=== PATIENT | female | born 1965 | race Caucasian/White ===

== ENCOUNTER 2016-12-18 09:30 | Emergency (ER) | payer OTHER ==
[~2016-12-18] VITALS: Ht 162.6 cm; Wt 68.7 kg
[2016-12-18] MEDS ORDERED: KEPPRA 500 MG500 MG PO ×2 (09:41→09:42)
[2016-12-18] MEDS ORDERED: CLARITIN 10MG T10 MG PO (09:42)
[2016-12-18] MEDS ORDERED: TRILEPTAL300 MG PO (09:42)
[2016-12-18] MEDS ORDERED: DICLOFENAC 50MG50 MG PO (09:43)
[2016-12-18] MEDS ORDERED: SPIRIVA HA1 PUFF/INH IH (09:43)
[2016-12-18] MEDS ORDERED: ADVAIR 250/5028 PUFF IN (09:43)
[2016-12-18] MEDS ORDERED: PREVACID 30MG C30 M1 PO (09:43)
--- NOTE | 2016-12-18 09:43 | Emergency Room Report ---
History of Present Illness Time Seen by MD Guerrero32 Presenting Problem in Triage Pt arrived:Walked Presenting Problem:PT C/O SOA, COUGH, AND HEAVINESS IN CHEST X9 DAYS. PT REPORTS HX OF ASTHMA. PT STATES THAT SHE HAS SEEN PCP AND HAS UNDERWENT TESTING, BUT STILL DOESNT FEEL WELL. 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 N Clinical Suspician of Infection? N Mental Status: 1 - Regular (Normal Baseline) Sepsis Risk:Low Sepsis Risk Have you (or family members/close friends) recently traveled outside the [place]? N If Yes, where/when: Have you had exposure to infectious disease within the past month? N TB? Other? Specify: Comment The patient states she has not felt well for over a week. Symptoms started on . She has a constant heaviness in her chest and difficulty breathing. She has a cough. Cough was initially off and on, but is worse today. She has had a headache. She was on 5 days of prednisone, prescribed by a telephone physician. While on that, her headache improved, but is now back. However, her chest symptoms did not improve. She saw her primary care physician on Friday 2 days ago and had a chest x-ray done at [facility], blood work, and an electrocardiogram. She does not yet know the results. She says that she has had chest discomfort that has kept her from sleep since 4 AM and therefore came to the emergency department. She has a history of asthma. She says her lungs were clear when seen by the physician on Friday. She does have a history of gastroesophageal reflux disease and is on Prevacid twice a day. She does not have any known heart disease, but states it runs in her family. She also states that she has a focal area of tenderness in her LEFT calf that began yesterday. His travel, hospitalizations, or surgeries. ALLERGIES Coded Allergies: phenytoin (From DILANTIN) (Mild, 12/18/16) Home Medications Reported Medications Levetiracetam (Keppra 500 Mg Tablet) 500 MG PO DAILY Levetiracetam (Keppra 500 Mg Tablet) 1,000 MG PO QHS Oxcarbazepine (Trileptal) 300 MG PO BID Loratadine (Claritin 10MG) 10 MG PO DAILY FLUTICASONE/SALMETEROL (Advair 250-50 Diskus) 1 PUFF IN BID Tiotropium [place] (Spiriva) 1 PUFF IH DAILY Lansoprazole (Prevacid) 30 MG PO BID DICLOFENAC SODIUM (Diclofenac 50MG) 50 MG PO DAILY History Medical History General CAD? No Angina: No SC: No Hypertension? No Hyperlipidemia? No CHF? No DVT? No PE? No COPD? No Asthma? Yes Anemia? No GERD? No Gastric ulcers? No GI Bleed? No Hernia? No Thyroid Problems? No Hypothyroidism? No CVA? No Seizures? Yes Diabetes? No Renal Insuffiency? No End Stage Renal Disease? No UTI? No Stones? No BPH? No GB Disease: No Nephritic Syndrome? No Asplenia? No Hepatitis? No Sickle Cell Disease? No Arthritis? No Migraines? No Cataracts? No Glaucoma? No MRSA? No HIV? No TB? No Anxiety? No Depression? No Cancer? No More? 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/A Social History Smoking Hx Smoker: Never Smoker Tobacco: No Alcohol Alcohol: No Review of Systems All Other Systems Reviewed and Negative Constitutional denies fever Respiratory cough, shortness of breath Cardiovascular chest pain Gastrointestinal denies abdominal pain, denies vomiting Musculoskeletal muscle pain (left calf) Physical Exam Vital Signs Vital Signs Date Time Temp Pulse Resp B/P Pulse O2 O2 Flow FiO2 Ox Delivery Rate 12/18 1257 97.9 78 20 122/85 100 12/18 1112 78 20 122/85 100 12/18 1035 97.9 82 20 125/83 100 12/18 0935 98.7 81 20 151/88 97 General Appearance normal appearance, WD/WN Eye Exam - bilateral eye normal exam, bilateral eye PERRL, bilateral eye EOMI Ear, Nose, Throat hearing grossly normal, normal ENT inspection Neck normal inspection, non-tender, supple, full range of motion Respiratory Status Yes: trachea midline, chest symmetrical, non tender chest. No: respiratory distress. Lung Sounds bilateral: normal breath sounds, lungs clear. 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 No Results/Orders Laboratory Tests 12/18/16944: Lactic Acid 0.6 12/18/16944: Sodium 126 L, Potassium 4.0, Chloride 93 L, Carbon Dioxide 26, BUN 9, Creatinine 0.5 L, Estimated Creat Clear 144, Estimated GFR (MDRD) 130, Glucose 102, Calcium 8.6, Total Bilirubin 0.4, AST 17, ALT 28, Alkaline Phosphatase 107, Total Protein 7.1, Albumin 3.3 L, Globulin 3.8 H, Albumin/Globulin Ratio 0.9 L, D-Dimer 425 *H, WBC 6.4, RBC 4.55, Hgb 13.9, Hct 40.7, MCV 89.4, RDW 11.9, Plt Count 289, MPV 8.2, Gran % 72.0, Gran # 4.6, Lymphocytes % 16.2, Monocytes % 7.9, Eosinophils % 3.2, Basophils % 0.8, Lymphocytes # 1.0, Monocytes # 0.5, Eosinophils # 0.2, Basophils # 0.1, PUBS MCHC 34.1, MCH 30.5 Current Medication Orders Sig/Nadeem Start time Last Medication Dose Route Stop Time Status Admin Sodium Chloride 10 ML PRN PRN 12/18 944 DCD IV 12/19 944 Orders Procedure Date/time Status DIET-NOTHING BY MOUTH 12/18 L Active VENOUS LOWER EXT LT 12/[address] CHEST W/PE PROTOCOL REQ 12/18 1052 Complete D-DIMER 12/18 1005 Complete ELECTROCARDIOGRAM REQUEST 12/18 945 Active IV SALINE LOCK 12/18 945 Active CULTURE, BLOOD 12/18 945 Active LACTIC ACID 12/18 945 Complete CBC WITH AUTO DIFF 12/18 945 Complete CHEM 12 PROFILE 12/18 945 Complete 12 LEAD EKG-NELLIE (INITIAL) 12/18 UNK Active CM/EKG CM/EKG Comments EKG interpreted by Bruce Rodgers MD: Rhythm: sinus Rate: 73 [place]: normal Ectopy: none Conduction: normal ST Segment Changes: none T Wave Changes: none Q Waves: none No evidence of acute ischemia or injury XRAY/CT/US XRAY/CT/US XRAY chest Comment X-ray interpreted by radiologist: LEFT basilar airspace disease CT chest Comment CT scan interpreted by radiologist: Round density in the LEFT lower lobe. "Round pneumonia" versus mass. No PE. No adenopathy. Ultrasound lower extremity Comment As per [facility] procedure, ultrasound report received from natural gas plant technician: Negative Departure Departure Disposition DC Home or Self Care(routine) Clinical Impression Primary Impression: Chest pain, atypical Secondary Impressions: Mass of lung parenchyma Condition STABLE Patient Instructions DI for Pneumonia -- Adult Additional Instructions Off work until Friday12/23/16. You have an abnormality of your LEFT lower lobe of your lung. This may be a pneumonia. It is important that you finish your course of antibiotics and then follow up with your primary care physician for repeat x-ray and further evaluation to assure that it resolves. If it does not resolve he will need further evaluation, possibly a biopsy. Additional instructions for CHEST PAIN: See your physician as soon as possible for further evaluation. Return immediately if worsening chest pain, vomiting, shortness of breath, fever, coughing of blood. Prescriptions Current Visit Scripts Levofloxacin (Levaquin 750MG Tab) 750 MG PO DAILY #5 TAB ED Critical Care Critical Care No at [id number]
--- NOTE | 2016-12-18 09:43 | Emergency Room Report ---
History of Present Illness Time Seen by MD [email or web address] Presenting Problem in Triage Pt arrived:Walked Presenting Problem:PT C/O SOA, COUGH, AND HEAVINESS IN CHEST X9 DAYS. PT REPORTS HX OF ASTHMA. PT STATES THAT SHE HAS SEEN PCP AND HAS UNDERWENT TESTING, BUT STILL DOESNT FEEL WELL. 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 N Clinical Suspician of Infection? N Mental Status: 1 - Regular (Normal Baseline) Sepsis Risk:Low Sepsis Risk Have you (or family members/close friends) recently traveled outside the [place]? N If Yes, where/when: Have you had exposure to infectious disease within the past month? N TB? Other? Specify: Comment The patient states she has not felt well for over a week. Symptoms started on . She has a constant heaviness in her chest and difficulty breathing. She has a cough. Cough was initially off and on, but is worse today. She has had a headache. She was on 5 days of prednisone, prescribed by a telephone physician. While on that, her headache improved, but is now back. However, her chest symptoms did not improve. She saw her primary care physician on Friday 2 days ago and had a chest x-ray done at [facility], blood work, and an electrocardiogram. She does not yet know the results. She says that she has had chest discomfort that has kept her from sleep since 4 AM and therefore came to the emergency department. She has a history of asthma. She says her lungs were clear when seen by the physician on Friday. She does have a history of gastroesophageal reflux disease and is on Prevacid twice a day. She does not have any known heart disease, but states it runs in her family. She also states that she has a focal area of tenderness in her LEFT calf that began yesterday. His travel, hospitalizations, or surgeries. ALLERGIES Coded Allergies: phenytoin (From DILANTIN) (Mild, 12/18/16) Home Medications Reported Medications Levetiracetam (Keppra 500 Mg Tablet) 500 MG PO DAILY Levetiracetam (Keppra 500 Mg Tablet) 1,000 MG PO QHS Oxcarbazepine (Trileptal) 300 MG PO BID Loratadine (Claritin 10MG) 10 MG PO DAILY FLUTICASONE/SALMETEROL (Advair 250-50 Diskus) 1 PUFF IN BID Tiotropium [place] (Spiriva) 1 PUFF IH DAILY Lansoprazole (Prevacid) 30 MG PO BID DICLOFENAC SODIUM (Diclofenac 50MG) 50 MG PO DAILY History Medical History General CAD? No Angina: No DC: No Hypertension? No Hyperlipidemia? No CHF? No DVT? No PE? No COPD? No Asthma? Yes Anemia? No GERD? No Gastric ulcers? No GI Bleed? No Hernia? No Thyroid Problems? No Hypothyroidism? No CVA? No Seizures? Yes Diabetes? No Renal Insuffiency? No End Stage Renal Disease? No UTI? No Stones? No BPH? No GB Disease: No Nephritic Syndrome? No Asplenia? No Hepatitis? No Sickle Cell Disease? No Arthritis? No Migraines? No Cataracts? No Glaucoma? No MRSA? No HIV? No TB? No Anxiety? No Depression? No Cancer? No More? 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 Social History Smoking Hx Smoker: Never Smoker Tobacco: No Alcohol Alcohol: No Review of Systems All Other Systems Reviewed and Negative Constitutional denies fever Respiratory cough, shortness of breath Cardiovascular chest pain Gastrointestinal denies abdominal pain, denies vomiting Musculoskeletal muscle pain (left calf) Physical Exam Vital Signs Vital Signs Date Time Temp Pulse Resp B/P Pulse O2 O2 Flow FiO2 Ox Delivery Rate 12/18 1257 97.9 78 20 122/85 100 12/18 1112 78 20 122/85 100 12/18 1035 97.9 82 20 125/83 100 12/18 0935 98.7 81 20 151/88 97 General Appearance normal appearance, WD/WN Eye Exam - bilateral eye normal exam, bilateral eye PERRL, bilateral eye EOMI Ear, Nose, Throat hearing grossly normal, normal ENT inspection Neck normal inspection, non-tender, supple, full range of motion Respiratory Status Yes: trachea midline, chest symmetrical, non tender chest. No: respiratory distress. Lung Sounds bilateral: normal breath sounds, lungs clear. 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 No Results/Orders Laboratory Tests 12/18/16944: Lactic Acid 0.6 12/18/16944: Sodium 126 L, Potassium 4.0, Chloride 93 L, Carbon Dioxide 26, BUN 9, Creatinine 0.5 L, Estimated Creat Clear 144, Estimated GFR (MDRD) 130, Glucose 102, Calcium 8.6, Total Bilirubin 0.4, AST 17, ALT 28, Alkaline Phosphatase 107, Total Protein 7.1, Albumin 3.3 L, Globulin 3.8 H, Albumin/Globulin Ratio 0.9 L, D-Dimer 425 *H, WBC 6.4, RBC 4.55, Hgb 13.9, Hct 40.7, MCV 89.4, RDW 11.9, Plt Count 289, MPV 8.2, Gran % 72.0, Gran # 4.6, Lymphocytes % 16.2, Monocytes % 7.9, Eosinophils % 3.2, Basophils % 0.8, Lymphocytes # 1.0, Monocytes # 0.5, Eosinophils # 0.2, Basophils # 0.1, PUBS MCHC 34.1, MCH 30.5 Current Medication Orders Sig/Nadeem Start time Last Medication Dose Route Stop Time Status Admin Sodium Chloride 10 ML PRN PRN 12/18 944 DCD IV 12/19 944 Orders Procedure Date/time Status DIET-NOTHING BY MOUTH 12/18 L Active VENOUS LOWER EXT LT 12/[address] CHEST W/PE PROTOCOL REQ 12/18 1052 Complete D-DIMER 12/18 1005 Complete ELECTROCARDIOGRAM REQUEST 12/18 945 Active IV SALINE LOCK 12/18 945 Active CULTURE, BLOOD 12/18 945 Active LACTIC ACID 12/18 945 Complete CBC WITH AUTO DIFF 12/18 945 Complete CHEM 12 PROFILE 12/18 945 Complete 12 LEAD EKG-NELLIE (INITIAL) 12/18 UNK Active CM/EKG CM/EKG Comments EKG interpreted by Bruce Rodgers MD: Rhythm: sinus Rate: 73 [place]: normal Ectopy: none Conduction: normal ST Segment Changes: none T Wave Changes: none Q Waves: none No evidence of acute ischemia or injury XRAY/CT/US XRAY/CT/US XRAY chest Comment X-ray interpreted by radiologist: LEFT basilar airspace disease CT chest Comment CT scan interpreted by radiologist: Round density in the LEFT lower lobe. "Round pneumonia" versus mass. No PE. No adenopathy. Ultrasound lower extremity Comment As per [facility] procedure, ultrasound report received from monogram technician: Negative Departure Departure Disposition DC Home or Self Care(routine) Clinical Impression Primary Impression: Chest pain, atypical Secondary Impressions: Mass of lung parenchyma Condition STABLE Patient Instructions DI for Pneumonia -- Adult Additional Instructions Off work until Friday12/23/16. You have an abnormality of your LEFT lower lobe of your lung. This may be a pneumonia. It is important that you finish your course of antibiotics and then follow up with your primary care physician for repeat x-ray and further evaluation to assure that it resolves. If it does not resolve he will need further evaluation, possibly a biopsy. Additional instructions for CHEST PAIN: See your physician as soon as possible for further evaluation. Return immediately if worsening chest pain, vomiting, shortness of breath, fever, coughing of blood. Prescriptions Current Visit Scripts Levofloxacin (Levaquin 750MG Tab) 750 MG PO DAILY #5 TAB ED Critical Care Critical Care No at 3227
[2016-12-18 10:00] LABS: HEMOGLOBIN 13.9 g/dL (12.2-16.2); LYMPH % 16.2 % (10-50.0)
--- NOTE | 2016-12-18 10:47 | RADIOLOGY REPORT PS360 ---
CHEST(2 VIEWS-NOT PORTABLE) COMPARISON: None HISTORY: Cough, shortness of breath TECHNIQUE: PA and lateral chest FINDINGS: The lung michelle are well expanded. There are slightly increased bronchovascular markings in the left lower lobe seen through the cardiac shadow suggesting a minimal pneumonic infiltrate. The left upper lung field and right lung field are clear. Cardiac size is normal and the vascularity is otherwise normal. There is no pleural fluid. There is mild dextroscoliotic curvature of the lower thoracic spine with multilevel degenerative changes. IMPRESSION: Findings suggesting minimal left lower lobe bronchopneumonia.
--- NOTE | 2016-12-18 11:35 | CARDIOVASCULAR REPORT ---
"Venous Exam Indications: 729.5 Pain in limb. IMPRESSIONS 1. There is no evidence of significant Reflux. 2. No evidence of deep or superficial vein thrombosis involving the left lower extremity Left lower extremity venous duplex evaluation. Doppler flow study including spectral analysis, color and turner scale imaging. Location: Vascular laboratory. Patient status: Emergency department. Tables: Venous flow and imaging: + +-------+ + |Location |Overall|Flow properties | + +-------+ + |Left common femoral |Patent |Normal phasicity; spontaneous; | | | |normal augmentation; compressible | + +-------+ + |Left saphenofemoral junction|Patent |Compressible | + +-------+ + |Left profunda femoral |Patent |Compressible | + +-------+ + |Left femoral |Patent |Normal phasicity; spontaneous; | | | |normal augmentation; compressible | + +-------+ + |Left greater saphenous |Patent |Normal phasicity; spontaneous; | | | |normal augmentation; compressible | + +-------+ + |Left popliteal |Patent |Normal phasicity; spontaneous; | | | |normal augmentation; compressible | + +-------+ + |Left posterior tibial |Patent |Compressible | + +-------+ + |Left peroneal |Patent |Compressible | + +-------+ + |Left gastrocnemius |Patent |Compressible | + +-------+ + |Left soleal |Patent |Compressible | + +-------+ + (Report amended ) Electronically signed by: Marco Henriquez [id number]"
--- NOTE | 2016-12-18 12:38 | RADIOLOGY REPORT PS360 ---
CTA -CHEST COMPARISON: PA and lateral chest same date HISTORY: Persistent cough, some chest pain TECHNIQUE: Multiaxial scans obtained from the thoracic inlet the hemidiaphragms after rapid injection of IV contrast. Sagittal and coronal reformats were evaluated as well. FINDINGS: There is mild hyperexpansion lung michelle. There is excellent vascular opacification and there is no CT evidence of pulmonary emboli. There is no abnormal superior mediastinal or hilar lymphadenopathy. There appears be a normal-sized AP window node. There is a somewhat suspicious rounded or oval mass in the left lower lobe posterior basilar segment measuring 2.5 x 2.0 x 2.9 cm. There are no air bronchograms within this mass. There is some minimal atelectasis in both posterior gutters. Both adrenal glands appear normal. IMPRESSION: Somewhat suspicious mass left lower lobe. With no smoking history a somewhat unusual "round pneumonia" is a consideration or possibly a hamartoma. However neoplastic mass cannot be excluded. Suggesting the patient for pneumonia and if there is not significant improvement in CT-guided fine-needle biopsy of the mass should be considered. There is no PE seen on the study.
[2016-12-18] MEDS ORDERED: LEVAQUIN750 MG PO (12:47)
[2016-12-18 12:57] VITALS: BP 122/85
--- OUTSIDE RECORDS SUMMARY | 2016-12-21 08:08 | External Medical Summary Rpt | CCD ---
Demographics Preferred Language Cambodian Marital Status Unknown Religion Affiliation Unknown Race Unknown Ethnic Group Unknown Author Author , BRANDI PAZ Address Unknown Phone Immunization No patient found.
--- OUTSIDE RECORDS SUMMARY | 2016-12-21 08:08 | External Medical Summary Rpt ---
Author Author BRANDI Booth, [employer] Address Unknown Phone Unavailable Results CBC W Auto Differential panel in Blood Observa Value Referen Units Interpr Notes Date tion ce etation Range Basophils 0 - 0.2 K/MM3 Normal No Dec 18 informati 2016 9:45 [#/volume on in AM ] in source Blood by data Automated count Basophils 0.1 - 2.0 % Normal No Dec 18 informati 2016 9:45 leukocyte on in AM s in source Blood by data Automated count Eosinophi 0.0 - 0.4 K/mm3 Normal No Dec 18 ls informati 2016 9:45 [#/volume on in AM ] in source Blood by data Automated count Eosinophi 0.1 - % Normal No Dec 18 ls/100 12.0 informati 2016 9:45 leukocyte on in AM s in source Blood by data Automated count Granulocy 1.8 - 7.8 K/mm3 Normal No Dec 18 fbaby informati 2016 9:45 [#/volume on in AM ] in source Blood by data Automated count Granulocy 37.0 - % Normal No Dec 18 fabby/100 80.0 informati 2017 9:45 leukocyte on in AM s in source Blood by data Automated count Hematocri 37.0 - % Normal No Dec 18 t [Volume 47.0 informati 2016 9:45 on in AM Fraction] source of Blood data Hemoglobi 12.2 - g/dL Normal No Dec 18 n 16.2 informati 2016 9:45 [Mass/vol on in AM ume] in source Blood data Lymphocyt 0.7 - 4.5 K/mm3 Normal No Dec 18 es informati 2016 9:45 [#/volume on in AM ] in source Unspecifi data ed specimen by Automated count Lymphocyt 10 - 50.0 % Normal No Dec 18 es informati 2016 9:45 [#/volume on in AM ] in source Unspecifi data ed specimen by Automated count Erythrocy 27 - 31.2 pg Normal No Dec 18 te mean informati 2016 9:45 corpuscul on in AM ar source hemoglobi data n [Entitic mass] Erythrocy 31.8 - g/dl Normal No Dec 18 te mean 35.4 informati 2017 9:45 corpuscul on in AM ar source hemoglobi data n concentra tion [Mass/vol ume] by Automated count Erythrocy 82.2 - fl Normal No Dec 18 te mean 97.8 informati 2016 9:45 corpuscul on in AM ar volume source [Entitic data volume] by Automated count Monocytes 0.1 - 1.0 K/mm3 Normal No Dec 18 informati 2016 9:45 [#/volume on in AM ] in source Blood by data Automated count Monocytes 1.7 - 9.3 % Normal No Dec 18 informati 2017 9:45 leukocyte on in AM s in source Blood by data Automated count Platelet 7.4 - fl Normal No Dec 18 mean 10.4 informati 2017 9:45 volume on in AM [Entitic source volume] data in Blood by Automated count Platelets 142 - 424 K/mm3 Normal No Dec 18 informati 2017 9:45 [#/volume on in AM ] in source Blood data Erythrocy 4.2 - 5.4 M/mm3 Normal No Dec 11 fabby informati 2016 9:45 [#/volume on in AM ] in source Amniotic data fluid Erythrocy 11.5 - % Normal No Dec 18 te 17.5 informati 2016 9:45 distribut on in AM ion width source [Entitic data volume] by Automated count Leukocyte 4.8 - K/MM3 Normal No Dec 11 s 10.8 informati 2016 9:45 [#/volume on in AM ] in source Blood data
--- OUTSIDE RECORDS SUMMARY | 2016-12-21 08:08 | External Medical Summary Rpt | CCD ---
Author Author [employer] Address Unknown Phone Unavailable Purpose Continuity of Care Document - through 2016
--- OUTSIDE RECORDS SUMMARY | 2016-12-21 08:08 | External Medical Summary Rpt | CCD ---
Author Author , BRANDI Organization BRANDI Address Unknown Phone [email or web address] Purpose Continuity of Care Document - 10-28-2016 through 2016 Problems Code Diagnosis DOS Provider Status R00.2 PALPITATION 12-17-2016 S R06.02 SHORTNESS 12-17-2016 OF BREATH R07.9 CHEST PAIN, 12-17-2016 UNSPECIFIED J45.909 UNSPECIFIED 10-28-2016 ASTHMA, UNCOMPLICAT ED K57.30 DIVERTICULO 10-28-2016 SIS OF LARGE INTESTINE WITHOUT PERFORATION OR ABSCESS WITHOUT BLEEDING Z12.11 ENCOUNTER 10-28-2016 FOR SCREENING FOR MALIGNANT NEOPLASM OF COLON Z79.899 OTHER LONG 10-28-2016 TERM (CURRENT) DRUG THERAPY
--- OUTSIDE RECORDS SUMMARY | 2016-12-21 08:08 | External Medical Summary Rpt ---
[...] - 7.8 K/mm3 Normal No Dec 18 fabby informati 2016 9:45 [#/volume on in [...]
--- OUTSIDE RECORDS SUMMARY | 2016-12-21 08:08 | External Medical Summary Rpt | CCD ---
Author Author , BRANDI Organization BRANDI Address Unknown Phone [email or web address] Purpose Continuity of Care Document - 10-28-2016 [...]
--- OUTSIDE RECORDS SUMMARY | 2016-12-21 08:08 | External Medical Summary Rpt | CCD ---
Demographics Preferred Language Mongolian Marital Status Unknown Congregational Affiliation Unknown Race Unknown Ethnic Group Unknown Author Author , BRANDI PAZ Address Unknown Phone Immunization No patient found.
== END 2016-12-18 13:03 | disposition home or self-care (01) ==
LOC: ER 09:30
PROVIDERS: Emergency Medicine
DX: R91.8 Other nonspecific abnormal finding of lung field (principal); R07.89 Other chest pain; K21.9 Gastro-esophageal reflux disease without esophagitis; J45.909 Unspecified asthma, uncomplicated
CPT/HCPCS: Q9967